=== PATIENT | female | born 1980 | race Caucasian/White ===

== ENCOUNTER 2017-11-04 12:50 | Emergency (ER) | payer OTHER | END 2017-11-04 13:34 | disposition left against medical advice (07) | LOC: ERS 12:50 | DX: Z53.21 Procedure and treatment not carried out due to patient leaving prior to being seen by health care provider (principal) ==

== ENCOUNTER 2019-04-02 16:00 | Emergency (ER) | payer OTHER, SELFPAY ==
[~2019-04-02 16:00] MED LIST: ISOVUE-370 76%-LOCM 1 ML ONE
[2019-04-02] MEDS ORDERED: Ibuprofen 800 MG TAB ONE (16:23)
[2019-04-02] MEDS ORDERED: Nitroglycerin 2% Ointment 1 INCH/1 GM Packet ONE (16:23)
--- NOTE | 2019-04-02 16:28 | RAD ---
1 view chest: CLINICAL HISTORY: New onset pain and short of breath COMPARISON: 11/21/2014 FINDINGS: There is no focal consolidation, or pneumothorax. Stable mild blunting of left lateral costophrenic sulcus. Cardiac silhouette is normal in size. No acute osseous abnormality. IMPRESSION: Stable blunting of left costophrenic sulcus. No focal consolidation.
[2019-04-02 16:33] LABS: #Basophils 0.1 thou/uL (0.0-0.2); #Eosinphils 0.1 thou/uL (0.0-0.7); #Lymphocytes 2.4 thou/uL (1.20-3.40); #Monocytes 0.6 thou/uL (0.11-0.59); #Neutrophils 4.1 thou/uL (1.40-6.50); %Eosinophils 1.3 % (0.0-10.0); %Lymphocytes 33.3 % (21.0-51.0); %Monocytes 8.7 % (0.0-10.0); %Neutrophils 55.7 % (42.0-75.0); Hemoglobin 12.9 g/dL (12.0-16.0); Mean Corpuscular Hemoglobin 29.6 pg (27.0-31.0); Platelet Count 225 thou/uL (130-400); RBC Distribution Width 10.5 % (11.5-14.5); Red Blood Cell (RBC) Count 4.37 mill/uL (4.20-5.40); White Blood Cell (WBC) Count 7.3 thou/uL (4.8-10.8)
[2019-04-02 16:51] LABS: ALT (SGPT) 18 U/L (8-55); AST (SGOT) 15 U/L (5-34); Albumin 4.3 g/dL (3.5-5.0); Alkaline Phosphatase 56 U/L (40-150); Anion Gap 12 mmol/L (10-20); BUN (Urea Nitrogen) 11 mg/dL (7.0-18.7); Bilirubin, Total 0.4 mg/dL (0.2-1.2); Calc. Creatinine Clearance 0 mL/min (70-130); Calcium 9.8 mg/dL (7.8-10.44); Carbon Dioxide 26 mmol/L (22-29); Chloride 105 mmol/L (98-107); Estimated GFR-MDRD Greater than 90; Globulin 2.7 g/dL (2.4-3.5); Glucose 106 mg/dL (70-105); Potassium 3.5 mmol/L (3.5-5.1); Sodium 139 mmol/L (136-145)
--- NOTE | 2019-04-02 17:42 | CT ---
CTA CHEST WITH CONTRAST, AND 3-D VOLUME RENDERING CLINICAL INDICATION: Chest pain, progressive in intensity Comparison exam: None FINDINGS: Pulmonary embolus:Limited evaluation for pulmonary pneumocephalus there is a diffuse decreased densit y of the pulmonary arterial contrast bolus. No definite large central pulmonary most of the trunk or main pulmonary arteries is identified Pulmonary parenchymal consolidation:No consolidation. Mild bilateral atelectasis. Previously describe d subcentimeter nodular density of right lung base demonstrates the appearance of scar on the current exam. Pleural effusion: None Pneumothorax: None Osseous structures: No acute process. Thoracic aorta: No aneurysmal dilatation. Focal ectasia at the proximal aspect of the descending thor acic aorta. This measures approximately 2.6 cm in diameter. IMPRESSION: Limited evaluation without a definite large, central pulmonary embolus. 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
[2019-04-02 19:14] LABS: Troponin I Less than 0.010 ng/mL (< 0.028)
[2019-04-02] MEDS ORDERED: Morphine 4 MG/ML VIAL ONE (19:47)
[2019-04-02] MEDS ORDERED: Ondansetron PF 4 MG/2 ML Vial ONE (19:47)
== END 2019-04-02 20:06 | disposition home or self-care (01) ==
LOC: ERS 16:00
DX: R07.2 Precordial pain (principal); F41.9 Anxiety disorder, unspecified; F43.10 Post-traumatic stress disorder, unspecified; F17.210 Nicotine dependence, cigarettes, uncomplicated; I25.2 Old myocardial infarction; Z86.711 Personal history of pulmonary embolism
CPT/HCPCS: 36415; 71045; 71275; 80053; 84484; 85025; 85379; 93005; 96374; 96375; J2270; J2405; Q9966

== ENCOUNTER 2019-11-18 09:35 | Outpatient (CLI) | payer OTHER ==
--- NOTE | 2019-11-18 10:58 | ULT ---
Ultrasound of thethyroid gland: 11/18/2019 Comparison: None HISTORY:Abnormal thyroid function tests TECHNIQUE: Multiplanar grayscale sonographic imaging of thethyroid gland FINDINGS:Thyroid gland is heterogeneous and enlarged, with the thyroid isthmus measuring 3 mm in AP d imension, the right lobe measuring 2.3 x 5.7 x 2.5 cm, and the left lobe measuring 2.1 x 5.7 x 1.9 cm. There is a solid hyperechoic nodule in the superior lateral aspect of the right lobe measuring 5 x 5 x 5 mm. There is a solid hyperechoic nodule within the inferior aspect of the left lobe measuring 5 x 3 x 4 mm. No dominant/suspicious thyroid nodule is noted IMPRESSION:TI-RADS 3-mildly suspicious. No follow-up is necessary secondary to the very small size of the above-described thyroid nodules.
== END 2019-11-18 09:36 | disposition home or self-care (01) ==
LOC: BICULT 09:35
PROVIDERS: ATTEND Family Medicine
DX: E06.9 Thyroiditis, unspecified (principal); E04.2 Nontoxic multinodular goiter
CPT/HCPCS: 76536